=== PATIENT | male | born 2000 | race Caucasian/White ===

== ENCOUNTER 2019-02-02 12:43 | Emergency (ER) | payer MEDICAID, OTHER ==
[~2019-02-02] VITALS: Ht 177.8 cm; Wt 72.7 kg
[2019-02-02 12:49] VITALS: BP 122/64
[2019-02-02] MEDS ORDERED: HYDR-4353 PO (14:20)
== END 2019-02-02 14:33 | disposition home or self-care (01) ==
LOC: ER 12:44
DX: S50.02XA Contusion of left elbow, initial encounter (principal); W00.0XXA Fall on same level due to ice and snow, initial encounter; Y93.89 Activity, other specified; Y92.89 Other specified places as the place of occurrence of the external cause; Y99.9 Unspecified external cause status
CPT/HCPCS: 73080; 99284